=== PATIENT | male | born 1990 | race Caucasian/White ===

== ENCOUNTER 2017-07-11 01:33 | Inpatient (IN) | payer MEDICAID ==
[~2017-07-11] VITALS: Ht 185.4 cm; Wt 112.1 kg
[2017-07-11 02:35] LABS: CALCIUM 8.4 mg/dL (8.5-10.1); CARBON DIOXIDE 29.6 mmol/L (21-32); CHLORIDE SERUM 106 mmol/L (98-107); CREATININE SERUM 1.1 mg/dL (0.7-1.3); GFR1 > 60 mL/min; GLUCOSE SERUM 105 mg/dL (74-106); POTASSIUM SERUM 3.8 mmol/L (3.5-5.1); SODIUM SERUM 137 mmol/L (136-145)
[2017-07-11 02:39] LABS: ALKALINE PHOSPHATASE 99 U/L (46-116); ALT/SGPT 44 U/L (16-63); AST/SGOT 54 U/L (15-37); BILIRUBIN TOTAL 0.67 mg/dL (0.20-1.00); TOTAL PROTEIN, SERUM 7.2 g/dL (6.4-8.2)
[2017-07-11 02:41] LABS: ALBUMIN 3.1 g/dL (3.4-5.0)
[2017-07-11 03:00] LABS: PLATELET COUNT 234 x10^3mcL (130-400)
[2017-07-11 03:25] LABS: SEGMENTED NEUTROPHILS 60 % (37-75)
[2017-07-11 03:26] LABS: MONOCYTE 7 % (0-7); rbc morphology (normal/abnorm) NORMAL (NORMAL)
[2017-07-11 03:27] LABS: PLATELET MORPHOLOGY PLATELETS NORMAL
[2017-07-11] MEDS ORDERED: COUMADIN5 MG PO (06:31)
[2017-07-11] MEDS ORDERED: FLONS (06:31)
[2017-07-11] MEDS ORDERED: PEPCID20 MG PO (06:33)
[2017-07-11] MEDS ORDERED: ADVAIR DISKUS 51 AER IH (06:33)
[2017-07-11] MEDS ORDERED: ALBUTEROL0.63 MG/3 IH (06:33)
[2017-07-11] MEDS ORDERED: ZANTAC 150150 MG PO (06:34)
[2017-07-11 07:13] LABS: MAGNESIUM 1.8 mg/dL (1.8-2.4); PHOSPHOROUS 3.1 mg/dL (2.5-4.9)
[2017-07-11 07:15] LABS: CHOLESTEROL/HDL RATIO 2.3
[2017-07-11 07:21] LABS: FREE T4 1.17 ng/dL (0.76-1.46); FREE THYROXINE INDEX 3.1 ug/dL (1.4-4.5); T4(THYROXINE) 9.1 ug/dL (4.7-13.3)
[2017-07-11 07:54] LABS: T3 TOTAL 1.17 ng/mL
[2017-07-11 08:49] VITALS: BP 122/76
[2017-07-11 09:34] VITALS: BP 134/73
[2017-07-11 11:44] VITALS: BP 136/79
[2017-07-11 14:43] LABS: microscopic required? NO
[2017-07-11 14:49] LABS: urine erythrocyte NEGATIVE (NEGATIVE)
[2017-07-11 17:31] VITALS: BP 112/70
[2017-07-11 22:13] VITALS: BP 118/61
[2017-07-12 05:48] VITALS: BP 123/73
[2017-07-12 06:17] LABS: BASOPHIL % 0.9 % (0-2); PLATELET COUNT 252 x10^3mcL (130-400)
[2017-07-12 06:32] LABS: RED CELL DISTRIBUTION WIDTH 20.3 % (11.5-14.5)
[2017-07-12 06:52] LABS: CALCIUM 8.7 mg/dL (8.5-10.1); CARBON DIOXIDE 27.2 mmol/L (21-32); CHLORIDE SERUM 107 mmol/L (98-107); CREATININE SERUM 0.9 mg/dL (0.7-1.3); GFR1 > 60 mL/min; GLUCOSE SERUM 84 mg/dL (74-106); MAGNESIUM 1.7 mg/dL (1.8-2.4); PHOSPHOROUS 3.3 mg/dL (2.5-4.9); POTASSIUM SERUM 3.8 mmol/L (3.5-5.1); SODIUM SERUM 141 mmol/L (136-145)
[2017-07-12 10:37] VITALS: BP 125/71
[2017-07-12 13:55] VITALS: BP 120/75
[2017-07-12 14:58] LABS: AMYLASE 43 U/L (25-115); LIPASE 71 IU/L (73-393)
[2017-07-12 17:38] VITALS: BP 122/78
[2017-07-12 20:18] VITALS: BP 124/69
[2017-07-12 21:42] VITALS: BP 110/62
[2017-07-13 05:32] VITALS: BP 129/72
[2017-07-13 06:46] VITALS: BP 131/68
[2017-07-13 06:57] LABS: PLATELET COUNT 248 x10^3mcL (130-400)
[2017-07-13 07:36] LABS: RED CELL DISTRIBUTION WIDTH 20.3 % (11.5-14.5)
[2017-07-13 08:00] VITALS: BP 131/68
[2017-07-13 08:25] LABS: BAND NEUTROPHIL 1 % (0-10); BASOPHIL 0 % (0-2); MONOCYTE 18 % (0-7); SEGMENTED NEUTROPHILS 45 % (37-75)
[2017-07-13 08:27] LABS: PLATELET MORPHOLOGY PLATELETS NORMAL; acanthocyte (spur cell) 3+; burr cell (echinocyte) 2+; rbc morphology (normal/abnorm) ABNORMAL (NORMAL); target cell (codocyte) 1+
[2017-07-13 08:40] LABS: CALCIUM 8.5 mg/dL (8.5-10.1); CARBON DIOXIDE 26.2 mmol/L (21-32); CHLORIDE SERUM 106 mmol/L (98-107); GFR1 > 60 mL/min; GLUCOSE SERUM 110 mg/dL (74-106); MAGNESIUM 1.5 mg/dL (1.8-2.4); PHOSPHOROUS 3.1 mg/dL (2.5-4.9); POTASSIUM SERUM 3.5 mmol/L (3.5-5.1); SODIUM SERUM 139 mmol/L (136-145)
[2017-07-13 10:23] VITALS: BP 119/65
[2017-07-13] MEDS ORDERED: LAC30L PO (10:39)
[2017-07-13] MEDS ORDERED: PRI20 PO (10:45)
[2017-07-13] MEDS ORDERED: NOR10T PO (10:46)
[2017-07-13 11:56] VITALS: BP 119/65
[2017-07-13 13:19] VITALS: BP 112/68
== END 2017-07-13 13:25 | disposition home or self-care (01) ==
LOC: ED 01:33 → DU 05:51
PROVIDERS: Emergency Medicine; Internal Medicine; ADMIT Student in an Organized Health Care Education/Training Program
PROC: 0DJ08ZZ Inspection of Upper Intestinal Tract, Via Natural or Artificial Opening Endoscopic (ICD-10-PCS; principal; 2017-07-12 10:00)
DX: K76.6 Portal hypertension (principal); I81 Portal vein thrombosis; D68.62 Lupus anticoagulant syndrome; E72.4 Disorders of ornithine metabolism; K74.69 Other cirrhosis of liver; E83.42 Hypomagnesemia; K27.9 Peptic ulcer, site unspecified, unspecified as acute or chronic, without hemorrhage or perforation; J45.909 Unspecified asthma, uncomplicated; Z68.32 Body mass index [BMI] 32.0-32.9, adult; Z79.01 Long term (current) use of anticoagulants
CPT/HCPCS: 43235; 83880; 84439; J1170; J1200; J1610; J1885; J2250; J2270; J2310; J2405; J3010; J3490; Q0092; Q0162; Q9967

== ENCOUNTER 2017-10-16 17:54 | Inpatient (IN) | payer MEDICAID ==
[~2017-10-16] VITALS: Ht 185.4 cm; Wt 113.5 kg
[~2017-10-16 17:54] MED LIST: ADVAIR DISKUS 51 AER IH; ALBUTEROL0.63 MG/3 IH; COUMADIN5 MG PO; FLONS; LAC30L PO; NOR10T PO; PEPCID20 MG PO; PRI20 PO; ZANTAC 150150 MG PO
[2017-10-16 20:06] LABS: CALCIUM 8.7 mg/dL (8.5-10.1); CARBON DIOXIDE 30.3 mmol/L (21-32); CHLORIDE SERUM 104 mmol/L (98-107); CREATININE SERUM 1.1 mg/dL (0.7-1.3); GFR1 > 60 mL/min; GLUCOSE SERUM 80 mg/dL (74-106); POTASSIUM SERUM 4.1 mmol/L (3.5-5.1); SODIUM SERUM 140 mmol/L (136-145)
[2017-10-16 20:11] LABS: ALKALINE PHOSPHATASE 107 U/L (46-116); ALT/SGPT 45 U/L (16-63); AST/SGOT 75 U/L (15-37); BILIRUBIN TOTAL 0.47 mg/dL (0.20-1.00); TOTAL PROTEIN, SERUM 7.5 g/dL (6.4-8.2)
[2017-10-16 20:13] LABS: ALBUMIN 2.9 g/dL (3.4-5.0)
[2017-10-16 20:24] LABS: PLATELET COUNT 345 x10^3mcL (130-400)
[2017-10-16 20:26] LABS: BASOPHIL % 3.6 % (0-2); RED CELL DISTRIBUTION WIDTH 18.1 % (11.5-14.5)
[2017-10-17] VITALS (7 sets, daily range): BP systolic 127–147; BP diastolic 71–86; Ht 185.4 cm; Wt 113.5 kg
[2017-10-17 02:53] LABS: MAGNESIUM 1.8 mg/dL (1.8-2.4); PHOSPHOROUS 3.6 mg/dL (2.5-4.9); T3 TOTAL 1.3 ng/mL
[2017-10-17 02:54] LABS: CHOLESTEROL/HDL RATIO 2.5
[2017-10-17 03:32] LABS: FREE T4 1.09 ng/dL (0.76-1.46); FREE THYROXINE INDEX 2.9 ug/dL (1.4-4.5); T4(THYROXINE) 9.1 ug/dL (4.7-13.3)
[2017-10-17 07:36] LABS: BASOPHIL % 0.3 % (0-2); PLATELET COUNT 341 x10^3mcL (130-400)
[2017-10-17 07:37] LABS: RED CELL DISTRIBUTION WIDTH 18.1 % (11.5-14.5)
[2017-10-17 07:40] LABS: CALCIUM 8.6 mg/dL (8.5-10.1); CHLORIDE SERUM 106 mmol/L (98-107); CREATININE SERUM 0.9 mg/dL (0.7-1.3); GFR1 > 60 mL/min; GLUCOSE SERUM 79 mg/dL (74-106); MAGNESIUM 1.7 mg/dL (1.8-2.4); POTASSIUM SERUM 3.3 mmol/L (3.5-5.1); SODIUM SERUM 140 mmol/L (136-145)
[2017-10-17 17:32] LABS: microscopic required? NO
[2017-10-17 17:41] LABS: UA SPECIFIC GRAVITY <=1.005 (1.005-1.035); urine erythrocyte NEGATIVE (NEGATIVE)
[2017-10-17 17:51] LABS: AMPHETAMINE QUAL UR NONE DETECTED (NEG <=1000)
[2017-10-18 05:59] VITALS: BP 125/68
[2017-10-18 07:13] LABS: CALCIUM 8.3 mg/dL (8.5-10.1); CARBON DIOXIDE 24.4 mmol/L (21-32); CHLORIDE SERUM 107 mmol/L (98-107); CREATININE SERUM 0.9 mg/dL (0.7-1.3); GFR1 > 60 mL/min; GLUCOSE SERUM 77 mg/dL (74-106); POTASSIUM SERUM 3.6 mmol/L (3.5-5.1); SODIUM SERUM 143 mmol/L (136-145)
[2017-10-18 07:33] LABS: BASOPHIL % 1.4 % (0-2); PLATELET COUNT 327 x10^3mcL (130-400)
[2017-10-18 08:01] LABS: RED CELL DISTRIBUTION WIDTH 18.4 % (11.5-14.5)
[2017-10-18 09:51] VITALS: BP 124/77
[2017-10-18 13:00] VITALS: BP 116/63
[2017-10-18 17:57] VITALS: BP 126/72
[2017-10-18 21:08] VITALS: BP 109/50
[2017-10-19 05:36] VITALS: BP 106/54
[2017-10-19 08:20] LABS: CALCIUM 8.4 mg/dL (8.5-10.1); CHLORIDE SERUM 107 mmol/L (98-107); GFR1 > 60 mL/min; GLUCOSE SERUM 87 mg/dL (74-106); SODIUM SERUM 142 mmol/L (136-145)
[2017-10-19] MEDS ORDERED: AUG500 PO (09:55)
[2017-10-19] MEDS ORDERED: LAC PO (09:55)
[2017-10-19] MEDS ORDERED: CLA10 PO (09:56)
[2017-10-19] MEDS ORDERED: MUCINEX600 MG PO (09:57)
[2017-10-19] MEDS ORDERED: ROBL PO (10:08)
[2017-10-19 10:19] VITALS: BP 112/61
[2017-10-19 12:56] LABS: BASOPHIL % 0.5 % (0-2); PLATELET COUNT 328 x10^3mcL (130-400)
[2017-10-19 12:59] LABS: RED CELL DISTRIBUTION WIDTH 17.8 % (11.5-14.5)
[2017-10-19 14:43] VITALS: BP 144/83
[2017-10-19 18:00] VITALS: BP 115/61
[2017-10-19 22:20] VITALS: BP 138/70
[2017-10-20] VITALS (7 sets, daily range): BP systolic 124–133; BP diastolic 52–76
[2017-10-20 06:31] LABS: PLATELET COUNT 324 x10^3mcL (130-400)
[2017-10-20 06:33] LABS: RED CELL DISTRIBUTION WIDTH 18.3 % (11.5-14.5)
[2017-10-20 06:38] LABS: CALCIUM 8.2 mg/dL (8.5-10.1); CARBON DIOXIDE 25.9 mmol/L (21-32); CHLORIDE SERUM 107 mmol/L (98-107); CREATININE SERUM 1.1 mg/dL (0.7-1.3); GFR1 > 60 mL/min; GLUCOSE SERUM 80 mg/dL (74-106); MAGNESIUM 1.9 mg/dL (1.8-2.4); PHOSPHOROUS 3.9 mg/dL (2.5-4.9); POTASSIUM SERUM 3.6 mmol/L (3.5-5.1); SODIUM SERUM 142 mmol/L (136-145)
[2017-10-20 10:59] LABS: ATYPICAL LYMPH 2 %; BAND NEUTROPHIL 0 % (0-10); BASOPHIL 0 % (0-2); MONOCYTE 8 % (0-7); SEGMENTED NEUTROPHILS 71 % (37-75)
[2017-10-20 11:00] LABS: PLATELET MORPHOLOGY PLATELETS NORMAL; rbc morphology (normal/abnorm) ABNORMAL (NORMAL); target cell (codocyte) 1+
== END 2017-10-20 15:51 | disposition home or self-care (01) | DRG 861 ==
LOC: ED 17:54 → DU 10-17 00:27 → MU 10-20 08:33
PROVIDERS: Emergency Medicine; Family Medicine; Student in an Organized Health Care Education/Training Program
DX: R79.1 Abnormal coagulation profile (principal); E44.0 Moderate protein-calorie malnutrition; D68.62 Lupus anticoagulant syndrome; T45.515A Adverse effect of anticoagulants, initial encounter; J20.9 Acute bronchitis, unspecified; H66.91 Otitis media, unspecified, right ear; K21.9 Gastro-esophageal reflux disease without esophagitis; E66.3 Overweight; Z68.32 Body mass index [BMI] 32.0-32.9, adult; Y92.009 Unspecified place in unspecified non-institutional (private) residence as the place of occurrence of the external cause
CPT/HCPCS: 83880; 84439; J0132; J1956; J2543; J3430; J3490; J7030; J7620

== ENCOUNTER 2019-03-19 23:32 | Emergency (ER) | payer MEDICAID ==
[~2019-03-19] VITALS: Ht 185.4 cm; Wt 133.4 kg
[~2019-03-19 23:32] MED LIST changes: +ADVAIR DISKUS 51 AER INH; +ALLEGRA ALLERG180 M1 PO; +AUG500 PO; +CLA10 PO; +COUMADIN10 MG PO; +GOOD SENSE OMEP20 MG PO; +LAC PO; +MUCINEX600 MG PO; +ROBL PO; +VENTOLIN H0.09 MG/A1 INH
[2019-03-19 23:45] VITALS: Ht 185.4 cm; Wt 133.4 kg
[2019-03-20 01:03] VITALS: BP 139/95
== END 2019-03-20 01:03 | disposition home or self-care (01) ==
LOC: ED 23:32
DX: K08.89 Other specified disorders of teeth and supporting structures (principal); J45.909 Unspecified asthma, uncomplicated; K21.9 Gastro-esophageal reflux disease without esophagitis; Z88.1 Allergy status to other antibiotic agents

== ENCOUNTER 2020-08-21 10:55 | Emergency (ER) | payer MEDICAID ==
[~2020-08-21] VITALS: Ht 185.4 cm; Wt 129.7 kg
[2020-08-21 11:24] VITALS: Ht 185.4 cm; Wt 129.7 kg
[2020-08-21 12:13] LABS: CALCIUM 8.8 mg/dL (8.5-10.1); CARBON DIOXIDE 29.9 mmol/L (21-32); CHLORIDE SERUM 106 mmol/L (98-107); CREATININE SERUM 1.2 mg/dL (0.7-1.3); GFR1 > 60 mL/min; GLUCOSE SERUM 116 mg/dL (74-106); POTASSIUM SERUM 3.9 mmol/L (3.5-5.1); SODIUM SERUM 138 mmol/L (136-145)
[2020-08-21 12:19] LABS: BILIRUBIN DIRECT 0.26 mg/dL (0.0-0.2); BILIRUBIN TOTAL 0.7 mg/dL (0.20-1.00); TOTAL PROTEIN, SERUM 7.6 g/dL (6.4-8.2)
[2020-08-21 12:22] LABS: ALBUMIN 3.3 g/dL (3.4-5.0); BASOPHIL % 0.1 % (0-2); PLATELET COUNT 287 x10^3mcL (130-400)
[2020-08-21 12:25] LABS: RED CELL DISTRIBUTION WIDTH 19.1 % (11.5-14.5)
[2020-08-21 14:30] VITALS: BP 135/78
== END 2020-08-21 14:30 | disposition home or self-care (01) ==
LOC: ED 10:55
PROVIDERS: Emergency Medicine
DX: R79.1 Abnormal coagulation profile (principal); J45.909 Unspecified asthma, uncomplicated; K21.9 Gastro-esophageal reflux disease without esophagitis; Z79.01 Long term (current) use of anticoagulants; Z88.1 Allergy status to other antibiotic agents

== ENCOUNTER 2020-08-22 14:10 | Emergency (ER) | payer MEDICAID ==
[~2020-08-22] VITALS: Ht 185.4 cm; Wt 130.2 kg
[2020-08-22 14:53] VITALS: Ht 185.4 cm; Wt 130.2 kg
[2020-08-22 17:04] VITALS: BP 107/68
== END 2020-08-22 17:04 | disposition home or self-care (01) ==
LOC: ED 14:10
DX: R04.0 Epistaxis (principal); T45.515A Adverse effect of anticoagulants, initial encounter; J45.909 Unspecified asthma, uncomplicated; I10 Essential (primary) hypertension; K21.9 Gastro-esophageal reflux disease without esophagitis; Z88.1 Allergy status to other antibiotic agents; Y92.89 Other specified places as the place of occurrence of the external cause

== ENCOUNTER 2020-09-23 17:42 | Emergency (ER) | payer MEDICAID, SELFPAY ==
[~2020-09-23] VITALS: Ht 185.4 cm; Wt 258.5 kg
[2020-09-23 17:44] VITALS: BP 127/67; Ht 185.4 cm; Wt 258.5 kg
== END 2020-09-23 20:13 | disposition home or self-care (01) ==
LOC: ED 17:42
DX: U07.1 COVID-19 (principal); J45.909 Unspecified asthma, uncomplicated; I10 Essential (primary) hypertension; K21.9 Gastro-esophageal reflux disease without esophagitis; Z98.890 Other specified postprocedural states; Z88.1 Allergy status to other antibiotic agents
CPT/HCPCS: U0003

== ENCOUNTER 2020-09-28 15:04 | Emergency (ER) | payer MEDICAID, SELFPAY ==
[~2020-09-28] VITALS: Ht 177.8 cm; Wt 90.7 kg
[2020-09-28 15:17] VITALS: Ht 177.8 cm; Wt 90.7 kg
[2020-09-28 18:17] VITALS: BP 114/71
[2020-10-03] MEDS ORDERED: KEFLEX500 M1 PO (12:08)
== END 2020-09-28 18:17 | disposition home or self-care (01) ==
LOC: ED 15:04
DX: U07.1 COVID-19 (principal); J45.909 Unspecified asthma, uncomplicated; I10 Essential (primary) hypertension; K21.9 Gastro-esophageal reflux disease without esophagitis; Z88.1 Allergy status to other antibiotic agents

== ENCOUNTER 2020-10-12 10:13 | Emergency (ER) | payer MEDICAID ==
[~2020-10-12] VITALS: Ht 185.4 cm; Wt 122.5 kg
[~2020-10-12 10:13] MED LIST changes: +KEFLEX500 M1 PO
[2020-10-12 10:16] VITALS: Ht 185.4 cm; Wt 122.5 kg
[2020-10-12 17:20] VITALS: BP 122/73
== END 2020-10-12 13:22 | disposition home or self-care (01) ==
LOC: ED 10:13
DX: R07.89 Other chest pain (principal); I10 Essential (primary) hypertension; J45.909 Unspecified asthma, uncomplicated; K21.9 Gastro-esophageal reflux disease without esophagitis; Z88.1 Allergy status to other antibiotic agents

== ENCOUNTER 2020-10-23 22:18 | Emergency (ER) | payer MEDICAID ==
[~2020-10-23] VITALS: Ht 185.4 cm; Wt 122.5 kg
[2020-10-23 22:43] VITALS: Ht 185.4 cm; Wt 122.5 kg
[2020-10-24] MEDS ORDERED: BACLOFEN10 MG PO (00:49)
[2020-10-24] MEDS ORDERED: NORCO1 TA2 PO (00:49)
[2020-10-24 01:44] VITALS: BP 141/86
== END 2020-10-24 01:44 | disposition home or self-care (01) ==
LOC: ED 22:18
DX: M54.5 Low back pain (principal); R05 Cough; E66.9 Obesity, unspecified; J45.909 Unspecified asthma, uncomplicated; I10 Essential (primary) hypertension; K21.9 Gastro-esophageal reflux disease without esophagitis; Z68.36 Body mass index [BMI] 36.0-36.9, adult

== ENCOUNTER 2020-11-27 19:42 | Emergency (ER) | payer MEDICAID ==
[~2020-11-27] VITALS: Ht 185.4 cm; Wt 12.2 kg
[~2020-11-27 19:42] MED LIST changes: +BACLOFEN10 MG PO; +NORCO1 TA2 PO
[2020-11-27 19:48] VITALS: Ht 185.4 cm; Wt 12.2 kg
[2020-11-27 20:53] LABS: PLATELET COUNT 441 x10^3mcL (152-348); RED CELL DISTRIBUTION WIDTH 18.8 % (12.1-16.2)
[2020-11-27 21:03] LABS: CALCIUM 8.6 mg/dL (8.5-10.1); CHLORIDE SERUM 101 mmol/L (98-107); CREATININE SERUM 1.4 mg/dL (0.7-1.3); GFR1 > 60 mL/min; GLUCOSE SERUM 92 mg/dL (74-106); POTASSIUM SERUM 4.2 mmol/L (3.5-5.1); SODIUM SERUM 136 mmol/L (136-145)
[2020-11-27 21:07] LABS: ALKALINE PHOSPHATASE 85 U/L (46-116); ALT/SGPT 21 U/L (16-63); AST/SGOT 25 U/L (15-37); BILIRUBIN TOTAL 0.5 mg/dL (0.20-1.00); LIPASE 100 IU/L (73-393); TOTAL PROTEIN, SERUM 7.8 g/dL (6.4-8.2)
[2020-11-27 21:08] LABS: ALBUMIN 2.9 g/dL (3.4-5.0)
[2020-11-27 21:40] LABS: ATYPICAL LYMPH 2 %; BAND NEUTROPHIL 2 % (0-10); METAMYELOCTE 2 % (0-2); MONOCYTE 15 % (0-7); SEGMENTED NEUTROPHILS 67 % (37-75)
[2020-11-27 21:43] LABS: rbc morphology (normal/abnorm) ABNORMAL (NORMAL); target cell (codocyte) 1+
[2020-11-27 21:44] LABS: PLATELET MORPHOLOGY PLATELETS NORMAL; acanthocyte (spur cell) 1+; ovalocyte/elliptocyte 1+
[2020-11-28 00:10] VITALS: BP 119/65
== END 2020-11-28 00:10 | disposition home or self-care (01) ==
LOC: ED 19:42
PROVIDERS: Emergency Medicine
DX: I88.0 Nonspecific mesenteric lymphadenitis (principal); N39.0 Urinary tract infection, site not specified; J45.909 Unspecified asthma, uncomplicated; I10 Essential (primary) hypertension; K21.9 Gastro-esophageal reflux disease without esophagitis; Z90.89 Acquired absence of other organs; Z88.1 Allergy status to other antibiotic agents
CPT/HCPCS: J0696; J1885; J2405; J7030; J7060; Q9967

== ENCOUNTER 2020-11-30 20:57 | Emergency (ER) | payer MEDICAID ==
[~2020-11-30] VITALS: Ht 185.4 cm; Wt 122.9 kg
[2020-11-30 21:16] VITALS: Ht 185.4 cm; Wt 122.9 kg
[2020-11-30 22:01] LABS: BASOPHIL % 0.8 % (0.2-1.5)
[2020-11-30 22:02] LABS: PLATELET COUNT 490 x10^3mcL (152-348); RED CELL DISTRIBUTION WIDTH 18.3 % (12.1-16.2)
[2020-11-30 22:03] LABS: CALCIUM 9.1 mg/dL (8.5-10.1); CARBON DIOXIDE 25.5 mmol/L (21-32); CREATININE SERUM 1.5 mg/dL (0.7-1.3)
[2020-11-30 22:12] LABS: BILIRUBIN TOTAL 0.5 mg/dL (0.20-1.00); TOTAL PROTEIN, SERUM 8.2 g/dL (6.4-8.2)
[2020-12-01 00:58] VITALS: BP 114/60
[2020-12-01 01:25] LABS: UA SPECIFIC GRAVITY 1.025 (1.005-1.035); microscopic required? YES; urine erythrocyte 2+ (NEGATIVE)
[2020-12-02] MEDS ORDERED: OMEPRAZOLE20 M4 PO (17:37)
[2020-12-02] MEDS ORDERED: COU5 PO (17:38)
[2020-12-02] MEDS ORDERED: ZESTRIL20 MG PO (17:38)
== END 2020-12-01 00:58 | disposition home or self-care (01) ==
LOC: ED 20:57
PROVIDERS: Emergency Medicine
DX: K56.7 Ileus, unspecified (principal); I88.0 Nonspecific mesenteric lymphadenitis; B34.9 Viral infection, unspecified; J45.909 Unspecified asthma, uncomplicated; I10 Essential (primary) hypertension; K21.9 Gastro-esophageal reflux disease without esophagitis; Z20.828 Contact with and (suspected) exposure to other viral communicable diseases; Z88.8 Allergy status to other drugs, medicaments and biological substances
CPT/HCPCS: C9113; J1200; J1885; J2405; J2765; J3010; J7030; U0003

== ENCOUNTER 2020-12-02 12:42 | Emergency (ER) | payer MEDICAID ==
[~2020-12-02] VITALS: Ht 185.4 cm; Wt 122.9 kg
[2020-12-02 13:04] VITALS: Ht 185.4 cm; Wt 122.9 kg
[2020-12-02 16:10] LABS: BASOPHIL % 0.7 % (0.2-1.5)
[2020-12-02 16:15] LABS: RED CELL DISTRIBUTION WIDTH 18.6 % (12.1-16.2)
[2020-12-02 16:18] LABS: microscopic required? YES; urine erythrocyte 2+ (NEGATIVE)
[2020-12-02 16:18] LABS: PLATELET COUNT 512 x10^3mcL (152-348)
[2020-12-02 16:26] LABS: CARBON DIOXIDE 23.5 mmol/L (21-32); CHLORIDE SERUM 102 mmol/L (98-107); CREATININE SERUM 1.4 mg/dL (0.7-1.3); GFR1 > 60 mL/min; GLUCOSE SERUM 88 mg/dL (74-106); POTASSIUM SERUM 3.6 mmol/L (3.5-5.1); SODIUM SERUM 137 mmol/L (136-145)
[2020-12-02 16:28] LABS: ALKALINE PHOSPHATASE 87 U/L (46-116); ALT/SGPT 20 U/L (16-63); AST/SGOT 29 U/L (15-37); BILIRUBIN TOTAL 0.6 mg/dL (0.20-1.00); TOTAL PROTEIN, SERUM 7.9 g/dL (6.4-8.2)
[2020-12-02 16:29] LABS: ALBUMIN 2.9 g/dL (3.4-5.0)
[2020-12-02] MEDS ORDERED: OMEPRAZOLE20 M4 PO (17:37)
[2020-12-02] MEDS ORDERED: ZESTRIL20 MG PO (17:38)
[2020-12-02] MEDS ORDERED: COU5 PO (17:38)
[2020-12-02 20:29] VITALS: BP 127/73
== END 2020-12-02 19:40 | disposition short-term general hospital (02) ==
LOC: ED 12:42
PROVIDERS: Emergency Medicine
DX: R10.84 Generalized abdominal pain (principal); J45.909 Unspecified asthma, uncomplicated; I10 Essential (primary) hypertension; K21.9 Gastro-esophageal reflux disease without esophagitis; Z88.1 Allergy status to other antibiotic agents; Z98.890 Other specified postprocedural states; Z20.828 Contact with and (suspected) exposure to other viral communicable diseases
CPT/HCPCS: J1885; J2270; J2405; J7030